=== PATIENT | male | born 1990 | race American Indian/Alaskan Native ===

== ENCOUNTER 2020-05-26 09:54 | Emergency (ER) | payer MEDICARE ==
[2020-05-26] MEDS ORDERED: dexAMETHasone 20 MG/5 ML VIAL IM ONE (11:27)
[2020-05-26] MEDS ORDERED: ALBUTEROL 2.5 MG/3 ML NEBU IH ONE (11:27)
[2020-05-26] MEDS ORDERED: IPRATROPIUM 0.02% NEBU 2.5 ML IH ONE (11:27)
[2020-05-26 11:41] VITALS: BP 129/89
--- NOTE | 2020-05-26 11:55 | Emergency Department Report ---
- General Chief Complaint: Upper Respiratory Infection Stated Complaint: SOB/CP/COUGH/SNEEZING/ Time Seen by Provider: 05/26/20 11:06 Source: patient Mode of arrival: Ambulatory Limitations: No Limitations - History of Present Illness Initial Comments: Patient is a 30-year-old male presents emergency room with complaints of a cough that began 3 days ago. He has associated sneezing, watering eyes, shortness of breath, sore throat, chest discomfort after frequent coughing, diarrhea. He denies any fever, nausea, vomiting, ear pain, abdominal pain. He states he has a past medical history of asthma but has not used an inhaler in multiple years. He states he is a current every day smoker half a pack per day. He denies any known sick contacts or recent travel. He states he also has a past medical history of bipolar and schizophrenia but denies any SI or HI. No allergies to medications. - Related Data Home Medications Medication Instructions Recorded Confirmed Last Taken Olanzapine [ZyPREXA] 10 mg PO QDAY 03/30/15 03/30/15 02/04/15 hydrOXYzine PAMOATE [Vistaril] 25 mg PO QHS 03/30/15 03/30/15 02/04/15 Previous Rx's Medication Instructions Recorded Last Taken Type Albuterol Sulfate [Proventil Hfa] 6.7 gm IH TID PRN #1 hfa.aer.ad 05/26/20 Unknown Rx Loratadine 10 mg PO DAILY #14 capsule 05/26/20 Unknown Rx Prednisone [predniSONE 10 mg 10 mg PO .TAPER #1 tab.ds.pk 05/26/20 Unknown Rx (6-Day Pack, 21 Tabs)] Allergies Allergy/AdvReac Type Severity Reaction Status Date / Time No Known Allergies Allergy Verified 11/18/14 00:20 ED Review of Systems ROS: Stated complaint: SOB/CP/COUGH/SNEEZING/ Other details as noted in HPI Comment: All other systems reviewed and negative ED Past Medical Hx - Past Medical History Hx Psychiatric Treatment: Yes (paranoid-schizophrenic and bipolar disorder) Hx Asthma: Yes Additional medical history: heart murmur - Surgical History Additional Surgical History: C4 surgery - pins - Social History Smoking Status: Current Every Day Smoker - Medications Home Medications: Home Medications Medication Instructions Recorded Confirmed Last Taken Type Olanzapine [ZyPREXA] 10 mg PO QDAY 03/30/15 03/30/15 02/04/15 History hydrOXYzine PAMOATE [Vistaril] 25 mg PO QHS 03/30/15 03/30/15 02/04/15 History Albuterol Sulfate [Proventil Hfa] 6.7 gm IH TID PRN #1 hfa.aer.ad 05/26/20 Unknown Rx Loratadine 10 mg PO DAILY #14 capsule 05/26/20 Unknown Rx Prednisone [predniSONE 10 mg 10 mg PO .TAPER #1 tab.ds.pk 05/26/20 Unknown Rx (6-Day Pack, 21 Tabs)] ED Physical Exam - General Limitations: No Limitations General appearance: alert, in no apparent distress - Head Head exam: Present: atraumatic, normocephalic - Eye Eye exam: Present: normal appearance - ENT ENT exam: Present: normal orophraynx, mucous membranes moist - Respiratory Respiratory exam: Present: wheezes (expiratory bilaterally). Absent: respiratory distress, rales, rhonchi, stridor, chest wall tenderness, accessory muscle use, decreased breath sounds - Cardiovascular Cardiovascular Exam: Present: regular rate, normal rhythm, normal heart sounds. Absent: systolic murmur, diastolic murmur, rubs, gallop - Neurological Exam Neurological exam: Present: alert, oriented X3 - Psychiatric Psychiatric exam: Present: normal affect, normal mood - Skin Skin exam: Present: warm, dry, intact ED Course Vital Signs 05/26/20 05/26/20 10:03 11:39 Temperature 98.4 F 98.2 F Pulse Rate 104 H 104 H Respiratory 18 14 Rate Blood Pressure 135/88 Blood Pressure 129/89 [Left] O2 Sat by Pulse 96 97 Oximetry ED Medical Decision Making - Lab Data Vital Signs 05/26/20 05/26/20 10:03 11:39 Temperature 98.4 F 98.2 F Pulse Rate 104 H 104 H Respiratory 18 14 Rate Blood Pressure 135/88 Blood Pressure 129/89 [Left] O2 Sat by Pulse 96 97 Oximetry - Radiology Data Radiology results: report reviewed CHEST 2 VIEWS INDICATION / CLINICAL INFORMATION: cough, SOB, wheezing. COMPARISON: None available. FINDINGS: SUPPORT DEVICES: None. HEART / MEDIASTINUM: No significant abnormality. LUNGS / PLEURA: No significant pulmonary or pleural abnormality. No pneumothorax. ADDITIONAL FINDINGS: No significant additional findings. IMPRESSION: 1. No acute findings. Signer Name: Kostas Mccrary MD Signed: 05/26/2020 12:14 PM Workstation Name: [id number] Transcribed By: RH Dictated By: KOSTAS MCCRARY III Electronically Authenticated By: KOSTAS MCCRARY III Signed Date/Time: 05/26/201213 DD/ 12 TD/TT: - Medical Decision Making Patient is a 30-year-old male presents emergency room with complaints of a cough that began 3 days ago. He has associated sneezing, watering eyes, shortness of breath, sore throat, chest discomfort after frequent coughing, diarrhea. He denies any fever, nausea, vomiting, ear pain, abdominal pain. He states he has a past medical history of asthma but has not used an inhaler in multiple years. He states he is a current every day smoker half a pack per day. He denies any known sick contacts or recent travel. He states he also has a past medical history of bipolar and schizophrenia but denies any SI or HI. No allergies to medications. vitals are stable. On exam patient has expiratory wheezing bilaterally, no rales, no rhonchi, no respiratory distress, no accessory muscle use, no stridor. CXR: 1. No acute findings. Symptoms likely related to viral URI with asthma exacerbation. Patient has no clinical signs of bacterial pneumonia or bronchitis. He has no clinical signs of dehydration. Patient is presenting with the symptoms during a COVID-19 pandemic, discussed COVID-19 with patient, discussed strict return precautions, discussed outpatient testing, discussed self quarantine. Patient does not meet hospital criteria for admission or for hospital COVID-19 testing. Patient given neb treatment and steroids IM while in the emergency department and breathing has significantly improved and wheezing resolved. Patient given prescription for albuterol inhaler, prednisone, loratadine. Advised patient Please take medication as prescribed. Please increase your fluid intake over the next several days. May take Tylenol as needed for fever or body aches. May take [id number]-[id number] cold symptom relief medication such as Mucinex or TheraFlu. Follow-up with a primary care doctor for reexamination. Return to emergency room immediately for any new or worsening symptoms including but not limited to difficulty breathing, shortness of breath, severe chest pain, unable to tolerate by mouth intake, etc. Please self quarantine for 10 days from the onset of your symptoms. Please do not go out in public. If you are around others at home please wear a mask. If you need to cough or sneeze please do so in a napkin and immediately throw it away and immediately wash your hands. Wash your hands frequently. Wipe everything down. Recommend for you to get COVID-19 testing, may have this done at primary care doctor, health department, [facility] testing [place]. - Differential Diagnosis URI, PNA, acute bronchitis, asthma exacerbation, viral syndrome, COVID-19 Critical care attestation.: If time is entered above; I have spent that time in minutes in the direct care of this critically ill patient, excluding procedure time. ED Disposition Clinical Impression: Viral URI with cough Asthma exacerbation Qualifiers: Asthma severity: unspecified severity Asthma persistence: unspecified Qualified Code(s): J45.901 - Unspecified asthma with (acute) exacerbation Disposition: DC- TO HOME OR SELFCARE Is pt being admited?: No Does the pt Need Aspirin: No Condition: Stable Instructions: COVID-19, Asthma (ED), Viral Syndrome (ED) Additional Instructions: Please take medication as prescribed. Please increase your fluid intake over the next several days. May take Tylenol as needed for fever or body aches. May take dsjx-dhx-ospebau cold symptom relief medication such as Mucinex or TheraFlu. Follow-up with a primary care doctor for reexamination. Return to emergency room immediately for any new or worsening symptoms including but not limited to difficulty breathing, shortness of breath, severe chest pain, unable to tolerate by mouth intake, etc. Please self quarantine for 10 days from the onset of your symptoms. Please do not go out in public. If you are around others at home please wear a mask. If you need to cough or sneeze please do so in a napkin and immediately throw it away and immediately wash your hands. Wash your hands frequently. Wipe everything down. Recommend for you to get COVID- 19 testing, may have this done at primary care doctor, health department, [facility] testing [place]. Prescriptions: Loratadine 10 mg PO DAILY #14 capsule Prednisone [predniSONE 10 mg (6-Day Pack, 21 Tabs)] 10 mg PO .TAPER #1 tab.ds.pk Albuterol Sulfate [Proventil Hfa] 6.7 gm IH TID PRN #1 hfa.aer.ad PRN Reason: Shortness Of Breath Referrals: CODY BROWN MD [Staff Physician] - 2-3 Days [facility] [Provider Group] - 2-3 Days [facility], [LAB/CONTRACT] - 2-3 Days Time of Disposition: 12:24 Print Language: TURKISH
--- NOTE | 2020-05-26 12:18 | XRay Report ---
CHEST 2 VIEWS INDICATION / CLINICAL INFORMATION: cough, SOB, wheezing. COMPARISON: None available. FINDINGS: SUPPORT DEVICES: None. HEART / MEDIASTINUM: No significant abnormality. LUNGS / PLEURA: No significant pulmonary or pleural abnormality. No pneumothorax. ADDITIONAL FINDINGS: No significant additional findings. IMPRESSION: 1. No acute findings. Signer Name: Kostas Mccrary MD Signed: 05/26/2020 12:14 PM Workstation Name: [id number]
== END 2020-05-26 13:08 | disposition home or self-care (01) ==
LOC: ED 09:54
DX: B34.9 Viral infection, unspecified (principal); J45.901 Unspecified asthma with (acute) exacerbation; F17.200 Nicotine dependence, unspecified, uncomplicated; Z79.899 Other long term (current) drug therapy
CPT/HCPCS: 71046; 94640; 96372; 99283; J1100